=== PATIENT | female | born 1995 | race American Indian/Alaskan Native ===

== ENCOUNTER 2017-06-21 10:41 | Emergency (ER) | payer SELFPAY ==
[2017-06-21 11:22] LABS: Hematocrit 35.8 % (30.3-42.9); Hemoglobin 12.1 gm/dl (10.1-14.3); Mean Corpuscular HGB Conc 34 % (30-34); Mean Corpuscular Hemoglobin 31 pg (28-32); Mean Corpuscular Volume 91 fl (79-97); Platelet Count 174 K/mm3 (140-440); Red Blood Count 3.92 M/mm3 (3.65-5.03); Red Cell Distribution Width 15.3 % (13.2-15.2); White Blood Count 23.9 K/mm3 (4.5-11.0)
[2017-06-21 11:36] LABS: Alanine Aminotransferase 11 units/L (7-56); Albumin 3.6 g/dL (3.9-5); Albumin/Globulin Ratio 1.1 %; Alkaline Phosphatase 85 units/L (35-129); Anion Gap 20 mmol/L; BUN/Creatinine Ratio 8; Blood Urea Nitrogen 8 mg/dL (7-17); Carbon Dioxide 23 mmol/L (22-30); Chloride 93.4 mmol/L (98-107); Glucose 113 mg/dL (65-100); Lipase 8 units/L (13-60); Potassium 3.8 mmol/L (3.6-5.0); Sodium 133 mmol/L (137-145)
[2017-06-21 11:55] LABS: Basophils % (Manual) 0 % (0.0-1.8); Blastocytes % (Manual) 0 %
[2017-06-21 11:56] LABS: Diff Status Complete; RBC Morphology Normal
[2017-06-21] MEDS ORDERED: TYLENOL PO ONE ×2 (12:32→18:46)
--- NOTE | 2017-06-21 12:32 | XRay Report ---
CHEST 2 VIEWS INDICATION: Chest discomfort, fever. COMPARISON: None similar. FINDINGS: PA and lateral chest radiographs demonstrate normal cardiomediastinal silhouette. Clear lungs with 9 mm left lower lung presumed nipple shadow. Thoracic spine straightening. CONCLUSION: No acute disease in the chest, as described. Future exams with nipple markers in place suggested. Thank you for the opportunity to participate in this patient's care.
[2017-06-21] MEDS ORDERED: TYLENOL ONE ×2 (12:35→18:35)
[2017-06-21] MEDS ORDERED: NACL 0.9% 1000 ML IV ONE (13:53)
[2017-06-21] MEDS ORDERED: ROCEPHIN/NS 1 GM/50 ML 1 GM/50 ML BAG IV ONE (13:53)
[2017-06-21] MEDS ORDERED: NACL 0.9% 1000 ML 1,000 ML IV ONE (13:53)
--- NOTE | 2017-06-21 13:56 | Emergency Department Report ---
ED General Adult HPI - General Chief complaint: Nausea/Vomiting/Diarrhea Stated complaint: SOB Time Seen by Provider: 06/21/17 13:47 Source: patient, RN notes reviewed Mode of arrival: Ambulatory Limitations: Physical Limitation - History of Present Illness Initial comments: This is a 21-year-old female. The patient is previously unknown to this provider. She does not have a local primary care doctor. She presents to the ER complaining of lower abdominal pain, right flank pain, chest pain, fever, chills, weakness. Symptoms are constant. Pain does not radiate anywhere. Pain increases with palpation and range of motion, decreases with rest. -: Gradual Location: chest, back, abdomen Severity scale (0 -10): 8 Quality: burning, stabbing, aching Consistency: constant Improves with: rest Worsens with: movement Associated Symptoms: chest pain, loss of appetite, weakness - Related Data Home Medications Medication Instructions Recorded Confirmed Last Taken Ibuprofen [Ibuprofen Ib] 200 mg PO Q4-6H 06/21/17 06/21/17 06/20/17 Allergies Allergy/AdvReac Type Severity Reaction Status Date / Time No Known Allergies Allergy Verified 06/21/17 10:43 ED Review of Systems ROS: Stated complaint: SOB Other details as noted in HPI Constitutional: fever, malaise, weakness Eyes: denies: eye discharge ENT: denies: epistaxis Respiratory: denies: wheezing Cardiovascular: chest pain Gastrointestinal: abdominal pain Genitourinary: denies: dysuria Musculoskeletal: back pain Skin: as per HPI Neurological: as per HPI, weakness Psychiatric: anxiety ED Past Medical Hx - Past Medical History Previous Medical History?: No Hx Hypertension: No Hx Heart Attack/AMI: No Hx Congestive Heart Failure: No Hx Diabetes: No Hx Deep Vein Thrombosis: No Hx Pulmonary Embolism: No Hx Liver Disease: No Hx Renal Disease: No Hx Sickle Cell Disease: No Hx Headaches / Migraines: No Hx Seizures: No Hx Asthma: No Hx COPD: No Hx Tuberculosis: No Hx HIV: No Additional medical history: Small Fallopian tubes - Surgical History Past Surgical History?: No - Social History Smoking Status: Never Smoker Substance Use Type: None - Medications Home Medications: Home Medications Medication Instructions Recorded Confirmed Last Taken Type Ibuprofen [Ibuprofen Ib] 200 mg PO Q4-6H 06/21/17 06/21/17 06/20/17 History ED Physical Exam - General Limitations: Physical Limitation General appearance: alert, in no apparent distress - Head Head exam: Present: atraumatic, normocephalic - Eye Eye exam: Present: normal appearance, EOMI. Absent: nystagmus - ENT ENT exam: Present: normal exam, normal orophraynx, mucous membranes dry - Neck Neck exam: Present: normal inspection, full ROM - Respiratory Respiratory exam: Present: normal lung sounds bilaterally. Absent: respiratory distress - Cardiovascular Cardiovascular Exam: Present: normal rhythm, tachycardia, normal heart sounds. Absent: systolic murmur, diastolic murmur, rubs, gallop - GI/Abdominal GI/Abdominal exam: Present: soft, tenderness. Absent: distended, rebound, rigid - Extremities Exam Extremities exam: Present: normal inspection, full ROM, normal capillary refill. Absent: pedal edema, joint swelling, calf tenderness - Back Exam Back exam: Present: normal inspection, full ROM. Absent: tenderness, CVA tenderness (R), paraspinal tenderness, vertebral tenderness - Neurological Exam Neurological exam: Present: alert, oriented X3, other (Extraocular movements intact. Tongue midline. No facial droop. Facial sensation intact to light touch in the V1, V2, V3 distribution bilaterally. 5 and 5 strength in 4 extremities.. Sensation is intact to light touch in 4 extremities.). Absent: motor sensory deficit - Psychiatric Psychiatric exam: Present: anxious - Skin Skin exam: Present: warm, dry, intact, normal color. Absent: rash ED Course Vital Signs 06/21/17 06/21/17 06/21/17 10:43 13:08 13:58 Temperature 99 F 100.6 F H 101.1 F H Pulse Rate 118 H 64 Respiratory 18 18 Rate Blood Pressure 185/99 Blood Pressure 103/63 [Left] O2 Sat by Pulse 20 L 100 Oximetry ED Medical Decision Making - Lab Data Result diagrams: 06/21/17 10:57 06/21/17 10:57 Vital Signs 06/21/17 06/21/17 06/21/17 10:43 13:08 13:58 Temperature 99 F 100.6 F H 101.1 F H Pulse Rate 118 H 64 Respiratory 18 18 Rate Blood Pressure 185/99 Blood Pressure 103/63 [Left] O2 Sat by Pulse 20 L 100 Oximetry Lab Results 06/21/17 06/21/17 06/21/17 Range/Units 10:57 10:57 10:57 WBC 23.9 H (4.5-11.0) K/mm3 RBC 3.92 (3.65-5.03) M/mm3 Hgb 12.1 (10.1-14.3) gm/dl Hct 35.8 (30.3-42.9) % MCV 91 (79-97) fl MCH 31 (28-32) pg MCHC 34 (30-34) % RDW 15.3 H (13.2-15.2) % Plt Count 174 (140-440) K/mm3 Add Manual Diff Complete Total Counted 100 Seg Neuts % (Manual) 85.0 H (40.0-70.0) % Band Neutrophils % 7.0 % Lymphocytes % (Manual) 4.0 L (13.4-35.0) % Reactive Lymphs % (Man) 0 % Monocytes % (Manual) 3.0 (0.0-7.3) % Eosinophils % (Manual) 1.0 (0.0-4.3) % Basophils % (Manual) 0 (0.0-1.8) % Metamyelocytes % 0 % Myelocytes % 0 % Promyelocytes % 0 % Blast Cells % 0 % Nucleated RBC % Not Reportable Seg Neutrophils # Man 20.3 H (1.8-7.7) K/mm3 Band Neutrophils # 1.7 K/mm3 Lymphocytes # (Manual) 1.0 L (1.2-5.4) K/mm3 Abs React Lymphs (Man) 0.0 K/mm3 Monocytes # (Manual) 0.7 (0.0-0.8) K/mm3 Eosinophils # (Manual) 0.2 (0.0-0.4) K/mm3 Basophils # (Manual) 0.0 (0.0-0.1) K/mm3 Metamyelocytes # 0.0 K/mm3 Myelocytes # 0.0 K/mm3 Promyelocytes # 0.0 K/mm3 Blast Cells # 0.0 K/mm3 WBC Morphology Not Reportable Hypersegmented Neuts Not Reportable Hyposegmented Neuts Not Reportable Hypogranular Neuts Not Reportable Smudge Cells Not Reportable Toxic Granulation Not Reportable Toxic Vacuolation Not Reportable Dohle Bodies Not Reportable Pelger-Huet Anomaly Not Reportable Randal Rods Not Reportable Platelet Estimate Not Reportable Clumped Platelets Not Reportable Plt Clumps, EDTA Not Reportable Large Platelets Not Reportable Giant Platelets Not Reportable Platelet Satelliting Not Reportable Plt Morphology Comment Not Reportable RBC Morphology Normal Dimorphic RBCs Not Reportable Polychromasia Not Reportable Hypochromasia Not Reportable Poikilocytosis Not Reportable Anisocytosis Not Reportable Microcytosis Not Reportable Macrocytosis Not Reportable Spherocytes Not Reportable Pappenheimer Bodies Not Reportable Sickle Cells Not Reportable Target Cells Not Reportable Tear Drop Cells Not Reportable Ovalocytes Not Reportable Helmet Cells Not Reportable Rock-[place]tz Bodies Not Reportable [place] Rings Not Reportable Blaine Cells Not Reportable Bite Cells Not Reportable Crenated Cell Not Reportable Elliptocytes Not Reportable Acanthocytes (Spur) Not Reportable Rouleaux Not Reportable Hemoglobin C Crystals Not Reportable Schistocytes Not Reportable Malaria parasites Not Reportable [place] Bodies Not Reportable Hem Pathologist Commnt No Sodium 133 L (137-145) mmol/L Potassium 3.8 (3.6-5.0) mmol/L Chloride 93.4 L (98-107) mmol/L Carbon Dioxide 23 (22-30) mmol/L Anion Gap 20 mmol/L BUN 8 (7-17) mg/dL Creatinine 1.0 (0.7-1.2) mg/dL Estimated GFR > 60 ml/min BUN/Creatinine Ratio 8 % Glucose 113 H (65-100) mg/dL Lactic Acid (0.7-2.0) mmol/L Calcium 8.0 L (8.4-10.2) mg/dL Total Bilirubin 0.50 (0.1-1.2) mg/dL AST 18 (5-40) units/L ALT 11 (7-56) units/L Alkaline Phosphatase 85 (35-129) units/L Total Creatine Kinase (30-135) units/L Troponin T (0.00-0.029) ng/mL Total Protein 7.0 (6.3-8.2) g/dL Albumin 3.6 L (3.9-5) g/dL Albumin/Globulin Ratio 1.1 % Lipase 8 L (13-60) units/L HCG, Qual Negative (Negative) Urine Color (Yellow) Urine Turbidity (Clear) Urine pH (5.0-7.0) Ur Specific [place] (1.003-1.030) Urine Protein (Negative) mg/dL Urine Glucose (UA) (Negative) mg/dL Urine Ketones (Negative) mg/dL Urine Blood (Negative) Urine Nitrite (Negative) Urine Bilirubin (Negative) Urine Urobilinogen (<2.0) mg/dL Ur Leukocyte Esterase (Negative) Urine WBC (Auto) (0.0-6.0) /HPF Urine RBC (Auto) (0.0-6.0) /HPF U Epithel Cells (Auto) (0-13.0) /HPF Urine Bacteria (Auto) (Negative) /HPF Ur Transition Epith Cell /HPF Urine Mucus /HPF 06/21/17 06/21/17 06/21/17 Range/Units 13:04 13:20 14:12 WBC (4.5-11.0) K/mm3 RBC (3.65-5.03) M/mm3 Hgb (10.1-14.3) gm/dl Hct (30.3-42.9) % MCV (79-97) fl MCH (28-32) pg MCHC (30-34) % RDW (13.2-15.2) % Plt Count (140-440) K/mm3 Add Manual Diff Total Counted Seg Neuts % (Manual) (40.0-70.0) % Band Neutrophils % % Lymphocytes % (Manual) (13.4-35.0) % Reactive Lymphs % (Man) % Monocytes % (Manual) (0.0-7.3) % Eosinophils % (Manual) (0.0-4.3) % Basophils % (Manual) (0.0-1.8) % Metamyelocytes % % Myelocytes % % Promyelocytes % % Blast Cells % % Nucleated RBC % Seg Neutrophils # Man (1.8-7.7) K/mm3 Band Neutrophils # K/mm3 Lymphocytes # (Manual) (1.2-5.4) K/mm3 Abs React Lymphs (Man) K/mm3 Monocytes # (Manual) (0.0-0.8) K/mm3 Eosinophils # (Manual) (0.0-0.4) K/mm3 Basophils # (Manual) (0.0-0.1) K/mm3 Metamyelocytes # K/mm3 Myelocytes # K/mm3 Promyelocytes # K/mm3 Blast Cells # K/mm3 WBC Morphology Hypersegmented Neuts Hyposegmented Neuts Hypogranular Neuts Smudge Cells Toxic Granulation Toxic Vacuolation Dohle Bodies Pelger-Huet Anomaly Randal Rods Platelet Estimate Clumped Platelets Plt Clumps, EDTA Large Platelets Giant Platelets Platelet Satelliting Plt Morphology Comment RBC Morphology Dimorphic RBCs Polychromasia Hypochromasia Poikilocytosis Anisocytosis Microcytosis Macrocytosis Spherocytes Pappenheimer Bodies Sickle Cells Target Cells Tear Drop Cells Ovalocytes Helmet Cells Rock-[place]iletz Bodies Hermitage Rings Joshua Cells Bite Cells Crenated Cell Elliptocytes Acanthocytes (Spur) Rouleaux Hemoglobin C Crystals Schistocytes Malaria parasites [place]okes[place] Bodies Hem Pathologist Commnt Sodium (137-145) mmol/L Potassium (3.6-5.0) mmol/L Chloride (98-107) mmol/L Carbon Dioxide (22-30) mmol/L Anion Gap mmol/L BUN (7-17) mg/dL Creatinine (0.7-1.2) mg/dL Estimated GFR ml/min BUN/Creatinine Ratio % Glucose (65-100) mg/dL Lactic Acid 1.80 (0.7-2.0) mmol/L Calcium (8.4-10.2) mg/dL Total Bilirubin (0.1-1.2) mg/dL AST (5-40) units/L ALT (7-56) units/L Alkaline Phosphatase (35-129) units/L Total Creatine Kinase 57 (30-135) units/L Troponin T (0.00-0.029) ng/mL Total Protein (6.3-8.2) g/dL Albumin (3.9-5) g/dL Albumin/Globulin Ratio % Lipase (13-60) units/L HCG, Qual (Negative) Urine Color Red (Yellow) Urine Turbidity Cloudy (Clear) Urine pH 6.0 (5.0-7.0) Ur Specific [place] 1.011 (1.003-1.030) Urine Protein 100 mg/dl (Negative) mg/dL Urine Glucose (UA) Neg (Negative) mg/dL Urine Ketones Neg (Negative) mg/dL Urine Blood Lg (Negative) Urine Nitrite Neg (Negative) Urine Bilirubin Neg (Negative) Urine Urobilinogen 4.0 (<2.0) mg/dL Ur Leukocyte Esterase Lg (Negative) Urine WBC (Auto) > 182.0 H (0.0-6.0) /HPF Urine RBC (Auto) 21.0 (0.0-6.0) /HPF U Epithel Cells (Auto) 12.0 (0-13.0) /HPF Urine Bacteria (Auto) 1+ (Negative) /HPF Ur Transition Epith Cell 1 /HPF Urine Mucus Few /HPF // Range/Units 14:12 WBC (4.5-11.0) K/mm3 RBC (3.65-5.03) M/mm3 Hgb (10.1-14.3) gm/dl Hct (30.3-42.9) % MCV (79-97) fl MCH (28-32) pg MCHC (30-34) % RDW (13.2-15.2) % Plt Count (140-440) K/mm3 Add Manual Diff Total Counted Seg Neuts % (Manual) (40.0-70.0) % Band Neutrophils % % Lymphocytes % (Manual) (13.4-35.0) % Reactive Lymphs % (Man) % Monocytes % (Manual) (0.0-7.3) % Eosinophils % (Manual) (0.0-4.3) % Basophils % (Manual) (0.0-1.8) % Metamyelocytes % % Myelocytes % % Promyelocytes % % Blast Cells % % Nucleated RBC % Seg Neutrophils # Man (1.8-7.7) K/mm3 Band Neutrophils # K/mm3 Lymphocytes # (Manual) (1.2-5.4) K/mm3 Abs React Lymphs (Man) K/mm3 Monocytes # (Manual) (0.0-0.8) K/mm3 Eosinophils # (Manual) (0.0-0.4) K/mm3 Basophils # (Manual) (0.0-0.1) K/mm3 Metamyelocytes # K/mm3 Myelocytes # K/mm3 Promyelocytes # K/mm3 Blast Cells # K/mm3 WBC Morphology Hypersegmented Neuts Hyposegmented Neuts Hypogranular Neuts Smudge Cells Toxic Granulation Toxic Vacuolation Dohle Bodies Pelger-Huet Anomaly Randal Rods Platelet Estimate Clumped Platelets Plt Clumps, EDTA Large Platelets Giant Platelets Platelet Satelliting Plt Morphology Comment RBC Morphology Dimorphic RBCs Polychromasia Hypochromasia Poikilocytosis Anisocytosis Microcytosis Macrocytosis Spherocytes Pappenheimer Bodies Sickle Cells Target Cells Tear Drop Cells Ovalocytes Helmet Cells Rock-Siletz Bodies Hermitage Rings Blaine Cells Bite Cells Crenated Cell Elliptocytes Acanthocytes (Spur) Rouleaux Hemoglobin C Crystals Schistocytes Malaria parasites [place] Bodies Hem Pathologist Commnt Sodium (137-145) mmol/L Potassium (3.6-5.0) mmol/L Chloride (98-107) mmol/L Carbon Dioxide (22-30) mmol/L Anion Gap mmol/L BUN (7-17) mg/dL Creatinine (0.7-1.2) mg/dL Estimated GFR ml/min BUN/Creatinine Ratio % Glucose (65-100) mg/dL Lactic Acid (0.7-2.0) mmol/L Calcium (8.4-10.2) mg/dL Total Bilirubin (0.1-1.2) mg/dL AST (5-40) units/L ALT (7-56) units/L Alkaline Phosphatase (35-129) units/L Total Creatine Kinase (30-135) units/L Troponin T < 0.010 (0.00-0.029) ng/mL Total Protein (6.3-8.2) g/dL Albumin (3.9-5) g/dL Albumin/Globulin Ratio % Lipase (13-60) units/L HCG, Qual (Negative) Urine Color (Yellow) Urine Turbidity (Clear) Urine pH (5.0-7.0) Ur Specific [place] (1.003-1.030) Urine Protein (Negative) mg/dL Urine Glucose (UA) (Negative) mg/dL Urine Ketones (Negative) mg/dL Urine Blood (Negative) Urine Nitrite (Negative) Urine Bilirubin (Negative) Urine Urobilinogen (<2.0) mg/dL Ur Leukocyte Esterase (Negative) Urine WBC (Auto) (0.0-6.0) /HPF Urine RBC (Auto) (0.0-6.0) /HPF U Epithel Cells (Auto) (0-13.0) /HPF Urine Bacteria (Auto) (Negative) /HPF Ur Transition Epith Cell /HPF Urine Mucus /HPF - EKG Data -: EKG Interpreted by Pa EKG shows normal: sinus rhythm Rate: normal - EKG Data 06/21/17 17:00 Sinus tachycardia, 115 bpm, normal axis, QTC prolonged, right bundle branch block, abnormal EKG, not morphologic consistent with ST elevation myocardial infarction - Radiology Data Radiology results: report reviewed, image reviewed CT scan of the chest, interpreted by radiology: No evidence of pneumonia or pulmonary embolus CT scan of the abdomen and pelvis, interpreted by radiology: Nephritis, paralytic ileus - Medical Decision Making Differential diagnosis, including would not limited to: Pyelonephritis, intra- abdominal infection, pulmonary embolus, pneumonia, pericarditis, myocarditis Assessment and plan: 21-year-old female, appears quite ill, with fever, tachycardia, leukocytosis. Diffuse abdominal tenderness, CT scan with IV contrast suggests pyelonephritis, paralytic ileus, urinary tract infection corroborated by urinalysis. Chest pain atypical for acute coronary syndrome, low risk by well's criteria, however given fever, tachycardia, negative abnormal vital signs, CT scan of the chest was obtained, was found to be negative for significant findings. Given negative troponin, myocarditis, pericarditis is very unlikely, EKG was ordered, I am still waiting for it to be performed. Case was presented to the Hospital physician, Dr. Beaulieu who accepts the patient to the medical service for presumed sepsis secondary to urinary tract infection. Critical care attestation.: If time is entered above; I have spent that time in minutes in the direct care of this critically ill patient, excluding procedure time. ED Disposition Clinical Impression: SIRS (systemic inflammatory response syndrome) Disposition: OP ADMIT IP TO THIS HOSP Is pt being admited?: Yes Condition: Good Referrals: LEATHA MALONE [Other] - 3-5 Days
[2017-06-21] MEDS ORDERED: cefTRIAXone 1 GM in NACL 0.9% 20 ML IV ONE (14:00)
[2017-06-21 14:18] LABS: Bacteria,Urine 1+ /HPF (Negative); Bilirubin,Urine NEG (Negative); Blood,Urine LG (Negative); Ketones,Urine NEG (Negative); Leukocyte Esterase,Urine LG (Negative); Mucus,Urine FEW /HPF; Nitrite,Urine NEG (Negative)
[2017-06-21 14:19] LABS: WBC,Urine > 182.0 /HPF (0.0-6.0)
[2017-06-21] MEDS ORDERED: SUBLIMAZE IV ONE (15:00)
[2017-06-21] MEDS: SUBLIMAZE IV ONE ×2 (15:28→15:32)
--- NOTE | 2017-06-21 15:33 | Cat Scan Report ---
FINAL REPORT EXAM: CT ABDOMEN PELVIS W CON HISTORY: abd pain back pain sepsis TECHNIQUE: CT examination of the ABDOMEN after IV contrast CT examination of the PELVIS after IV contrast PRIORS: None. FINDINGS: Nonspecific prominence of the left hepatic lobe may be developmental variation. No evidence of focal liver lesion. Normal-appearing gallbladder, adrenals, pancreas, and spleen. No evidence of acute fracture or significant degenerative change no vertebral compression fracture. Intact normal caliber abdominal aorta and IVC. Nonspecific heterogeneous striated appearance of renal parenchymal IV contrast-enhancement bilaterally. In addition, there is hypoenhancement in the right renal lower pole and left kidney anteriorly. These findings may reflect areas of ischemia, infarct, or pyelonephritis. Nonspecific fat stranding adjacent to the right kidney inferior aspect may be edema, inflammation, or infection. Similar possibility exists for slight hyperenhancement of mural thickening in the renal pelvis bilaterally. No hydronephrosis. No evidence of renal calculus. The exam is limited from a paucity of natural intra-abdominal fat, and lack of contrast, to separate adjacent organs and structures. The ureters are largely obscured by adjacent soft tissues. Intestinal loops are also difficult to visualize separately. Normal-appearing stomach and duodenum. Intact anterior abdominal wall. No definite retroperitoneal adenopathy. No visible mesenteric mass. Nonspecific scattered prominence of small bowel in the abdomen and pelvis. This may be related to paralytic ileus. No definite obstructive pattern. Nonspecific slight free fluid in the pelvis. Slight free fluid is also noted adjacent to the inferior aspect of the right kidney and within the right pericolic gutter. Normal-appearing uterus and adnexa. Normal-appearing cecum and terminal ileum. Appendix not definitely separately identified. What may be a small portion of the appendix appears normal. Nonspecific mural thickening is diffuse in the urinary bladder. No definite rectal abnormality. No definite abnormality in visible sigmoid colon, partly obscured by adjacent anatomy in the pelvis. No evidence of colonic distention. Slight prominence of central colonic gas may reflect paralytic ileus. IMPRESSION: Urinary tract findings raise suspicion of bilateral pyelonephritis, worse on the right, and cystitis. The differential for regions of renal parenchymal hypo enhancement include ischemia and/or infarct. Free fluid in the right pericolic gutter, right lower quadrant, and pelvis may be reactive Scattered prominence of small and large intestine may reflect paralytic ileus Prominence of left hepatic lobe may be developmental variation
--- NOTE | 2017-06-21 15:40 | Cat Scan Report ---
FINAL REPORT EXAM: CT ANGIO CHEST HISTORY: cp fever sepsis TECHNIQUE: CT examination of the chest after IV contrast PRIORS: AP CT 06/21/2017 FINDINGS: Abdominal findings can be found in AP CT report 06/21/2017. Normal cardiac size without pericardial effusion. Nonspecific slight soft tissue prominence with triangular configuration is noted in the anterior mediastinum. This is suggestive of remnant thymic tissue. Intact normal caliber thoracic aorta. Normal-appearing esophagus. No evidence of hilar mass or mediastinal adenopathy. The visualized pulmonary arteries are diffusely patent bilaterally. There is no filling defect to suggest PE. No pneumothorax or pleural effusion. No focal pulmonary consolidation. No pulmonary parenchymal infiltrate. No lung nodule or mass. No evidence of acute fracture. IMPRESSION: No CT evidence of acute chest pathology
[2017-06-21] MEDS ORDERED: LEVAQUIN 750MG/150ML 750 MG/150 ML BAG IV ONE (15:56)
--- NOTE | 2017-06-21 17:18 | History and Physical Report ---
History of Present Illness Chief complaint: I feel sick, and my side hurts. History of present illness: 21 YO Female with Endometriosis, Chronic Abdominal Pain with menses presents to ED for evaluation. Pt states that she has experienced low back pain for the past 4 days with persistent symptoms during the same time frame. Pt states that she has pain mainly located in the right flank. Pain is 8/10, nonradiating, associated with subjective fever, chills, weakness and nausea. Pt denies hematuria, BRBPR, skin rash, productive cough, trauma, recent ill contacts, vaginal discharge, or HIV risk factors. Pt seen and evaluated in ED. Past History Past Medical History: other (Endometriosis) Past Surgical History: No surgical history, Other (reviewed) Social history: single, lives with family. denies: smoking, alcohol abuse, prescription drug abuse Family history: no significant family history Medications and Allergies Allergies Allergy/AdvReac Type Severity Reaction Status Date / Time No Known Allergies Allergy Verified 06/21/17 10:43 Home Medications Medication Instructions Recorded Confirmed Last Taken Type Acetaminophen/Codeine [Tylenol 1 tab PO Q6H PRN #20 tab 06/21/17 Unknown Rx /Codeine # 3 tab] Ibuprofen [Ibuprofen Ib] 200 mg PO Q4-6H 06/21/17 06/21/17 06/20/17 History Levofloxacin [Levaquin TAB] 500 mg PO QDAY #10 tablet 06/21/17 Unknown Rx Ondansetron [Zofran Odt] 4 mg PO BID PRN #15 tab.rapdis 06/21/17 Unknown Rx Active Meds: Active Medications Levofloxacin/Dextrose (Levaquin 750mg/150ml) 750 mg in 150 mls @ 100 mls/hr IV ONCE ONE Stop: 06/21/17 17:25 Sodium Chloride (Nacl 0.45%) 1,000 mls @ 500 mls/hr IV DIRECT LADONNA Review of Systems Constitutional: no weight loss, no weight gain, no fever, no chills Ears, nose, mouth and throat: no ear pain, no ear discharge, no tinnitis, no decreased hearing Breasts: no change in shape, no swelling, no mass Cardiovascular: no chest pain, no orthopnea, no palpitations, no rapid/ irregular heart beat, no edema Respiratory: no cough, no cough with sputum, no excessive sputum, no hemoptysis , no shortness of breath Gastrointestinal: abdominal pain, no constipation, no coffee ground emesis, no BRBPR, no melena, no hematochezia, no loss of appetite Genitourinary Female: no urinary frequency, no urgency, no stress incontinence, no post void dribbling Menstruation: currently menstrual Rectal: no pain, no incontinence, no bleeding Musculoskeletal: no neck stiffness, no neck pain, no shooting arm pain, no arm numbness/tingling Integumentary: no rash, no pruritis, no redness, no sores, no wounds Neurological: no head injury, no transient paralysis, no paralysis, no weakness , no parathesias, no numbness Psychiatric: no anxiety, no memory loss, no change in sleep habits, no sleep disturbances, no insomnia Endocrine: no cold intolerance, no heat intolerance, no polyphagia, no excessive thirst, no polydipsia, no polyuria Hematologic/Lymphatic: no easy bruising, no easy bleeding Allergic/Immunologic: no urticaria, no allergic rhinitis, no wheezing Exam - Constitutional Vitals: Temp Pulse Resp BP Pulse Ox 101.1 F H 64 18 103/63 100 06/21/17 13:58 06/21/17 13:58 06/21/17 13:58 06/21/17 13:58 06/21/17 13:58 General appearance: Present: no acute distress, well-nourished - EENT Eyes: Present: PERRL ENT: hearing intact, clear oral mucosa - Neck Neck: Present: supple, normal ROM - Respiratory Respiratory effort: normal Respiratory: bilateral: CTA - Cardiovascular Heart Sounds: Present: S1 & S2. Absent: rub, click - Extremities Extremities: pulses symmetrical, No edema Peripheral Pulses: within normal limits - Abdominal General gastrointestinal: Present: soft, non-tender, non-distended, normal bowel sounds Female genitourinary: Present: normal - Integumentary Integumentary: Present: clear, warm, dry - Musculoskeletal Musculoskeletal: gait normal, strength equal bilaterally - Psychiatric Psychiatric: appropriate mood/affect, intact judgment & insight - Neurologic Neurologic: CNII-XII intact, moves all extremities Results - Labs CBC & Chem 7: 06/21/17 20:00 06/21/17 10:57 Labs: Abnormal lab results 12/22/17 12/22/17 12/22/17 Range/Units 10:57 10:57 13:20 WBC 23.9 H (4.5-11.0) K/mm3 RDW 15.3 H (13.2-15.2) % Seg Neuts % (Manual) 85.0 H (40.0-70.0) % Lymphocytes % (Manual) 4.0 L (13.4-35.0) % Seg Neutrophils # Man 20.3 H (1.8-7.7) K/mm3 Lymphocytes # (Manual) 1.0 L (1.2-5.4) K/mm3 Sodium 133 L (137-145) mmol/L Chloride 93.4 L (98-107) mmol/L Glucose 113 H (65-100) mg/dL Calcium 8.0 L (8.4-10.2) mg/dL Albumin 3.6 L (3.9-5) g/dL Lipase 8 L (13-60) units/L Urine WBC (Auto) > 182.0 H (0.0-6.0) /HPF Assessment and Plan - Patient Problems (1) Endometriosis Status: Acute Plan to address problem: [employer] f/u within 3-5 days. supportive care. (2) Abdominal pain Status: Acute Plan to address problem: secondary to endometriosis, Abdominal pain workup negative, no acute findings on CT abdomen pelvis.
[2017-06-21] MEDS ORDERED: NACL 0.45% 1,000 ML IV SCH (18:00)
[2017-06-21 20:08] LABS: Hematocrit 30.8 % (30.3-42.9); Hemoglobin 10.4 gm/dl (10.1-14.3); Mean Corpuscular HGB Conc 34 % (30-34); Mean Corpuscular Hemoglobin 31 pg (28-32); Mean Corpuscular Volume 91 fl (79-97); Platelet Count 132 K/mm3 (140-440); Red Blood Count 3.39 M/mm3 (3.65-5.03); Red Cell Distribution Width 15.5 % (13.2-15.2); White Blood Count 10.6 K/mm3 (4.5-11.0)
[2017-06-21 20:31] VITALS: BP 103/59
[2017-06-21 20:55] LABS: Basophils % (Manual) 0 % (0.0-1.8); Blastocytes % (Manual) 0 %; Eosinophils % (Manual) 0 % (0.0-4.3)
[2017-06-21 20:56] LABS: Anisocytosis 1+; Diff Status Complete; Platelet Estimate Consistent w Auto
[2017-06-21] MEDS ORDERED: TYLENOL #3 ONE (21:15)
[2017-06-21] MEDS ORDERED: ZOFRAN ODT ONE (21:16)
[2017-06-21] MEDS ORDERED: ZOFRAN ODT PO ONE (21:54)
[2017-06-21] MEDS ORDERED: TYLENOL #3 PO ONE (21:58)
== END 2017-06-21 22:01 | disposition admitted as inpatient to this hospital (09) ==
LOC: ED 10:41
DX: R65.10 Systemic inflammatory response syndrome (SIRS) of non-infectious origin without acute organ dysfunction (principal)
CPT/HCPCS: 36415; 71020; 71275; 74177; 80053; 81001; 82140; 82550; 83690; 84484; 84703; 85007; 85025; 87040; 87076; 87086; 87186; 87400; 93005; 93010; 96365; 96366; 96375; 99285; J0696; J1956; J3010; J7030; Q9967; Q0162